=== PATIENT | male | born 1960 | race Asian ===

== ENCOUNTER 2022-02-11 18:04 | Observation (INO) | payer MEDICAID ==
[~2022-02-11] VITALS: Ht 167.6 cm; Wt 96.6 kg
[2022-02-11 18:05] VITALS: BP_SYST 157
--- NOTE | 2022-02-11 18:05 | NUR ---
BROUGHT IN BY [facility] AND [facility], SEEN AND EVALUATED BY DR LITTLEJOHN AND CODE STROKE CALLED. TAKEN DIRECTLY TO CT
--- NOTE | 2022-02-11 18:19 | NUR ---
RETURNED TO ROOM #1 AND REPORT GIVEN TO PAULA
--- NOTE | 2022-02-11 18:32 | NUR ---
patient to ed at this time following last know well time to be 5pm, patient back from CT scan. patient NIH score is 2 at this time, patient alert and oriented x 3, has left facial droop with mild slurred speech, NSR on the monitor, patient close to nursing station and continuosly monitored.
[2022-02-11 19:02] LABS: ANION GAP 7 (5-15); BASOPHILS # (AUTO) 0.1 K/uL (0.0-0.2); BASOPHILS % (AUTO) 0.6 % (0.0-2.0); CALCIUM 9.4 mg/dL (8.4-11.0); CHLORIDE 101 mmol/L (98-107); CREATININE 1.15 mg/dL (0.55-1.30); EOSINOPHILS # (AUTO) 0.4 K/uL (0.0-0.4); EOSINOPHILS % (AUTO) 5.1 % (0.0-4.0); GLUCOSE 109 mg/dL (70-99); HEMATOCRIT 44.9 % (36-54); HEMOGLOBIN 15.3 g/dL (14.0-18.0); LYMPHOCYTES # (AUTO) 2.7 K/uL (1.0-5.5); LYMPHOCYTES % (AUTO) 31.3 % (20.5-51.5); MEAN CORPUSCULAR HEMOGLOBIN 29 pg (27-31); MEAN CORPUSCULAR HGB CONC 34 % (32-36); MEAN CORPUSCULAR VOLUME 85 fL (79.0-98.0); MONOCYTES # (AUTO) 0.6 K/uL (0.0-1.0); MONOCYTES % (AUTO) 7.4 % (1.7-9.3); NEUTROPHILS # (AUTO) 4.7 K/uL (1.8-7.7); NEUTROPHILS % (AUTO) 55.6 % (40.0-70.0); PLATELET COUNT (AUTO) 186 K/uL (130-430); POTASSIUM 3.7 mmol/L (3.5-5.1); RED CELL DISTRIBUTION WIDTH 14.3 % (9.0-15.0); UREA NITROGEN, BLOOD 19 mg/dL (8-21); WHITE BLOOD COUNT (AUTO) 8.6 K/uL (4.8-10.8)
[2022-02-11 19:11] LABS: ALANINE AMINOTRANSFERASE 14 U/L (12-78); ALBUMIN 3.8 g/dL (3.4-4.8); ASPARTATE AMINOTRANSFERASE 22 U/L (10-37); TOTAL BILIRUBIN 0.6 mg/dL (0.0-1.0)
[2022-02-11 19:12] LABS: GFR AFRICAN AMERICAN 83 mL/min (>90)
[2022-02-11 19:22] LABS: INR 0.9 (0.80-1.20); PROTHROMBIN TIME 9.6 SECS (9.5-12.5)
--- NOTE | 2022-02-11 19:57 | NUR ---
NEUROLOGIST MD BAKER ASSESSED PT VIA TELEMED. PT BEATRICE TO LIFT ARMS BILATERALLY. PT ABLE TO LIFT LOWER EXTREMITIES ONE BY ONE. PT FOLLOWS COMMANDS. PT IS A&OX 4. PT SPEAKS FULL SENTENCES. NO SIGNS OF DISTRESS AT THIS TIME. PER MD BAKER, WILL HAVE PEER TO PEER FOR CTA. PT VSS PT AT BEDSIDE. NO SIGNS OF DISTRESS AT THIS TIME. PT PENDING URINE. PROVIDED URINAL BEDSIDE
[2022-02-11] MEDS ORDERED: ASPIRIN 81 MG TAB.CHEW PO ONE (20:00)
--- NOTE | 2022-02-11 20:03 | NUR ---
DANIEL SWABBED AND SENT TO LAB
[2022-02-11] MEDS ORDERED: iohexoL 350 mgI/mL, 100 ML INFUS..BTL IV ONE (20:10)
--- NOTE | 2022-02-11 20:19 | NUR ---
CONSENT OBTAINED BY PT FOR CTA.
--- NOTE | 2022-02-11 21:14 | NUR ---
Admit bed requested Patient will be admitted to care of Dr. Harp Admitted to Telemetry OBS unit. Diagnosis TIA Inpatient (Yes or No) no Observation (Yes or No) yes Orientation concerns or request close to nursing station (Yes or No) no Covid Status negative On vent or bipap no Isolation requirements no Needs a sitter no From Home (Yes or if No enter name of facility) yes Requires Dialysis (Yes or No) no Med Rec Completed (Yes of No) yes
[2022-02-11] MEDS ORDERED: BENA40TA89 PO (22:11)
[2022-02-11] MEDS ORDERED: OLME20TA74 PO (22:12)
[2022-02-11] MEDS ORDERED: LIP20 PO (22:12)
[2022-02-11] MEDS ORDERED: METO50TA7 PO (22:12)
[2022-02-11] MEDS ORDERED: DILT360C32 PO (22:13)
--- NOTE | 2022-02-11 23:00 | NUR ---
ADMISSION NOTE Received patient from ER via andrea, received report from JOSE COX. Patient admitted with diagnosis of TIA. Patient oriented to hospital routine, call light, toileting and safety-patient verbalized understanding.
--- NOTE | 2022-02-11 23:11 | NUR ---
PT WAS ADMITTED TO TELE ROOM 118A. BEDSIDE REPORT GIVEN TO AMIRA. ALL QUESTIONS ANSWERED. PT VSS. PT IN STABLE CONDITION. WITH PATIENT.
[2022-02-11 23:13] VITALS: BP_SYST 152
[2022-02-11 23:18] LABS: BILIRUBIN,URINE NEGATIVE (NEGATIVE); BLOOD, URINE NEGATIVE (NEGATIVE); CLARITY/URINE CLEAR (CLEAR); COLOR,URINE YELLOW (YELLOW); GLUCOSE,URINE NEGATIVE (NEGATIVE); KETONES,URINE NEGATIVE (NEGATIVE); LEUKOCYTE ESTERASE ,URINE NEGATIVE (NEGATIVE); NITRITE, URINE NEGATIVE (NEGATIVE); PROTEIN URINE NEGATIVE (NEGATIVE); UROBILINOGEN,URINE 0.2 (0.2-1.0)
[2022-02-11 23:22] LABS: BARBITURATE, URINE NEGATIVE (NEG <=200); BENZODIAZEPINE, URINE NEGATIVE (NEG <=150); CANNABINOID, URINE NEGATIVE (NEG <=50); COCAINE, URINE NEGATIVE (NEG <=150); METHAMPHETAMINES SCREEN,URINE NEGATIVE (NEG <=500); OPIATE, URINE NEGATIVE (NEG <=100); PHENCYCLIDINE SCREEN,URINE NEGATIVE (NEG <=25); UR TRICYCLIC ANTIDEPRESSANTS NEGATIVE (NEG <=300); URINE AMPHETAMINE NEGATIVE (NEG <=500); URINE METHADONE NEGATIVE (NEG <=200); URINE OXYCODONE SCREEN NEGATIVE (NEG <=100); URINE PROPOXYPHENE SCREEN NEGATIVE (NEG <=300)
[2022-02-11] MEDS ORDERED: FLU VACC QS2022-23(6MOS UP)/PF 0.5 ML/SYR SYRINGE I.M. PRN (23:30)
--- NOTE | 2022-02-11 23:30 | NUR ---
Initial RN notes Pt AAOx4, VSS. No s/s distress noted. No neurodeficits noted. IV saline lock L. AC 18G flushes well with NS. Oriented pt to call light use, pt verbalized understanding. Call light within reach. Updated with POC and MRI order for the AM. Bed low, locked, siderails up x2. Safety maintained. To monitor.
--- NOTE | 2022-02-12 02:48 | NUR ---
CONSULTATION PAGED/CALLED Reason for Consultation: TIA Person Who was Notified:DINORAH Consulting Physician: DR HEATH Mechanic [employer] Specialty: Ordering Physician: ARIELLE
[2022-02-12 06:04] VITALS: BP_SYST 128
--- NOTE | 2022-02-12 06:10 | NUR ---
Closing notes Pt asleep, easily awakens, no s/s distress noted. VSS. Call light within reach. Bed low, locked, siderails up x2. Pending MRI of head. To endorse to AM nurse.
--- NOTE | 2022-02-12 07:20 | NUR ---
OPENING NOTE RECEIVED SBAR FROM NIGHT RN. PATIENT IN BED, EYES CLOSED, RESPIRATIONS EVEN, NON LABORED, BED IN LOW AND LOCKED POSITION, CALL LIGHT WITHIN REACH.
[2022-02-12 08:00] VITALS: BP_SYST 165
--- NOTE | 2022-02-12 08:22 | NUR ---
PAGED DR BURKS REGARDING PATIENTS ELEVATED BP SPOKE PEEWEE (DR GUZMÁN SALES ORDER PROCESSOR)
--- NOTE | 2022-02-12 09:40 | NUR ---
INFORMED DR GUZMÁN OF INCREASED BP, NEW ORDERS RECEIVED
[2022-02-12] MEDS ORDERED: hydrALAZINE HCL 20 MG/ML VIAL IVP PRN (09:45)
--- NOTE | 2022-02-12 09:53 | NUR ---
MRI PT TAKEN TO MRI VIA WHEELCHAIR Addendum: 02/12/[address] RN INCORRECT TIME ENTERED ON ABOVE NOTE, PT LEFT FOR MRI 11:12
[2022-02-12 11:28] VITALS: BP_SYST 166
[2022-02-12] MEDS ORDERED: BENAZEPRIL HCL 20 MG TABLET (LOTENSIN) PO SCH (11:45)
[2022-02-12] MEDS ORDERED: OLME40TA70 PO (12:15)
[2022-02-12] MEDS ORDERED: lisinopriL 20 MG TABLET PO ONE (12:15)
--- NOTE | 2022-02-12 12:25 | NUR ---
MRI PT IS BACK FROM MRI
[2022-02-12] MEDS ORDERED: LOSARTAN POTASSIUM 50 MG TABLET (COZAAR) PO ONE (12:30)
[2022-02-12 14:14] LABS: CHOLESTEROL 153 mg/dL (<200); HDL CHOLESTEROL 48 mg/dL (>45); LDL CHOLESTEROL 80 mg/dL (<100); TRIGLYCERIDES 202 mg/dL (30-150)
[2022-02-12] MEDS ORDERED: ASPI-1393 PO (15:03)
[2022-02-12 15:21] VITALS: BP_SYST 166
--- NOTE | 2022-02-12 16:45 | NUR ---
D/C Patient Patient given medication reconciliation form and D/C instructions. Exit Care provided. Patient verbalized understanding. MD discussed with patient the results and treatment provided. Ambulatory with steady gait for discharge to home. Patient in stable condition, ID band removed. IV catheter removed, intact and dressing applied, no active bleeding. Patient educated on pain management. All belongings sent with patient. Wheeled patient out via wheelchair to a waiting car.
[2022-02-12] MEDS ORDERED: ATORVASTATIN 20 MG TABLET PO SCH (21:00)
--- NOTE | 2022-02-13 08:18 | NUR ---
Dispo code 01
[2022-02-13] MEDS ORDERED: DILTIAZEM HCL 360 MG PO SCH (09:00)
[2022-02-13] MEDS ORDERED: DILTIAZEM HCL 180 MG CAP.SR.24H PO SCH (09:00)
[2022-02-13] MEDS ORDERED: OLMESARTAN MEDOXOMIL 20 MG TABLET PO SCH (09:00)
[2022-02-13] MEDS ORDERED: lisinopriL 20 MG TABLET PO SCH (09:00)
[2022-02-13] MEDS ORDERED: METOPROLOL SUCCINATE 50 MG TAB.SR.24H (TOPROL XL) PO SCH (09:00)
[2022-02-13] MEDS ORDERED: LOSARTAN POTASSIUM 50 MG TABLET (COZAAR) PO SCH (09:00)
== END 2022-02-12 16:45 | disposition home or self-care (01) ==
LOC: SED 18:04 → STU 21:56
PROVIDERS: ADMIT Specialist; ATTEND Specialist
DX: G45.9 Transient cerebral ischemic attack, unspecified (principal); Z20.822 Contact with and (suspected) exposure to COVID-19; I10 Essential (primary) hypertension; E78.5 Hyperlipidemia, unspecified; E78.00 Pure hypercholesterolemia, unspecified; Z79.899 Other long term (current) drug therapy
CPT/HCPCS: 80307; 80053; 80048; 85025; 85610; 85730; 86886; 86900; 86901; 84484; 36415 ×2; 93005; 71045; 70450; 70496; 70498; 76376; 99285; 81003; 87426; 96374; 80061; 70551; 97162; Q9967; G0378 ×2; J0360

== ENCOUNTER 2022-05-20 20:09 | Emergency (ER) | payer MEDICAID ==
[~2022-05-20] VITALS: Ht 162.6 cm; Wt 90.7 kg
[~2022-05-20 20:09] MED LIST: ASPI-1393 PO; DILT360C32 PO; LIP20 PO; METO50TA7 PO; OLME40TA70 PO
[2022-05-20 20:23] VITALS: BP_SYST 153
--- NOTE | 2022-05-20 20:28 | NUR ---
Patient triaged and placed in waiting room. VSS and patient appears in no acute distress at this time. Accompanied by , awaiting available bed, and MD Wick notified of need for MSE.
[2022-05-20 20:58] LABS: BASOPHILS % (AUTO) 0.7 % (0.0-2.0); EOSINOPHILS # (AUTO) 0.4 K/uL (0.0-0.4); HEMATOCRIT 39.7 % (36-54); HEMOGLOBIN 13.2 g/dL (14.0-18.0); LYMPHOCYTES # (AUTO) 1.6 K/uL (1.0-5.5); LYMPHOCYTES % (AUTO) 23.8 % (20.5-51.5); MEAN CORPUSCULAR HEMOGLOBIN 28 pg (27-31); MEAN CORPUSCULAR HGB CONC 33 % (32-36); MEAN CORPUSCULAR VOLUME 85 fL (79.0-98.0); MONOCYTES # (AUTO) 0.5 K/uL (0.0-1.0); MONOCYTES % (AUTO) 7.3 % (1.7-9.3); NEUTROPHILS # (AUTO) 4.2 K/uL (1.8-7.7); NEUTROPHILS % (AUTO) 62.2 % (40.0-70.0); PLATELET COUNT (AUTO) 308 K/uL (130-430); RED CELL DISTRIBUTION WIDTH 13.9 % (9.0-15.0); WHITE BLOOD COUNT (AUTO) 6.7 K/uL (4.8-10.8)
[2022-05-20 21:02] LABS: ANION GAP 7 (5-15); CALCIUM 9.5 mg/dL (8.4-11.0); CHLORIDE 102 mmol/L (98-107); CREATININE 1.13 mg/dL (0.55-1.30); GLUCOSE 174 mg/dL (70-99); UREA NITROGEN, BLOOD 17 mg/dL (8-21)
[2022-05-20 21:11] LABS: ALANINE AMINOTRANSFERASE 11 U/L (12-78); ALBUMIN 3.6 g/dL (3.4-4.8); ASPARTATE AMINOTRANSFERASE 17 U/L (10-37); TOTAL BILIRUBIN 0.5 mg/dL (0.0-1.0)
[2022-05-20 21:12] LABS: GFR AFRICAN AMERICAN 84 mL/min (>90)
--- NOTE | 2022-05-20 22:02 | NUR ---
Placed in room 1 . Placed on cardiac rehab nurse, blood pressure machine and pulse oximeter. To gown for exam. Side rails up. Report given to YULIANA GARCIA(REG).
--- NOTE | 2022-05-20 22:05 | NUR ---
pt placed in room at this time
[2022-05-20] MEDS ORDERED: NACL 0.9% 1,000 ML IV ONE (22:30)
[2022-05-20] MEDS ORDERED: FAMOTIDINE PF 20 MG/2 ML VIAL IVP ONE (22:30)
[2022-05-20] MEDS ORDERED: MORPHINE 2 MG/ML INJ. SYRINGE IVP ONE (22:45)
[2022-05-20] MEDS ORDERED: ONDANSETRON HCL 4 MG/2 ML VIAL IVP ONE (22:45)
[2022-05-20] MEDS ORDERED: iohexoL 350 mgI/mL, 100 ML INFUS..BTL IV ONE (22:46)
[2022-05-20] MEDS ORDERED: MAG HYDROX/AL HYDROX/SIMETH 30 ML, DICYCLOMINE HCL 20 MG, LIDOCAINE VISCOUS 2% 15ML (PO... PO ONE ×3 (23:45)
[2022-05-21] MEDS ORDERED: IBUP-1969 PO (00:09)
[2022-05-21] MEDS ORDERED: ACET-2634 PO (00:09)
[2022-05-21] MEDS ORDERED: AUG875 PO (00:22)
--- NOTE | 2022-05-21 00:49 | NUR ---
Patient given written and verbal discharge instructions and verbalizes understanding. ER MD discussed with patient the results and treatment provided. Patient in stable condition. ID arm band removed. IV catheter removed intact and dressing applied, no active bleeding. Rx of given. Patient educated on pain management and to follow up with PMD. Pain Scale . Opportunity for questions provided and answered. Medication side effect fact sheet provided.
== END 2022-05-21 00:49 | disposition home or self-care (01) ==
LOC: SED 20:09
DX: R07.9 Chest pain, unspecified (principal); J98.4 Other disorders of lung; Q25.46 Tortuous aortic arch; E04.1 Nontoxic single thyroid nodule; K59.00 Constipation, unspecified; Z79.899 Other long term (current) drug therapy
CPT/HCPCS: 99285; 96374; 71275; 71045; 96375; 96361; 80053; 83880; 85025; 84484; 36415; 93005; 76376; Q9967; J3490; J2405; J2270; J7030